=== PATIENT | female | born 1955 | race American Indian/Alaskan Native ===

== ENCOUNTER → 2018-12-13 | Emergency (ER) | payer SELFPAY ==
[~2018-12-13] MED LIST: LEXISCAN IV ONE; LOPRESSOR ONE; LOPRESSOR PO ONE; LOPRESSOR PO SCH; MORPHINE IV ONE; MORPHINE IV PRN; NON-FORMULARY (Rosuvastatin Calcium [Crestor] 40 MG) PO SCH; PERCOCET 5/325 PO PRN; PLAVIX ONE; PLAVIX PO ONE; PLAVIX PO SCH; PROzac ONE; PROzac PO SCH; SODIUM CHLORIDE FLUSH SYRINGE 10 ML IV PRN; SODIUM CHLORIDE FLUSH SYRINGE 10 ML IV SCH; TYLENOL PO PRN; ZOFRAN IV ONE; ZOFRAN IV PRN
--- NOTE | 2018-12-13 19:19 | Emergency Department Report ---
Blank Doc - Documentation Documentation: This is a 63-year-old female that presents witih CP and SOB. This initial assessment/diagnostic orders/clinical plan/treatment(s) is/are subject to change based on patient's health status, clinical progression and re- assessment by fellow clinical providers in the ED. Further treatment and workup at subsequent clinical providers discretion. Patient/guardians urged not to elope from the ED as their condition may be serious if not clinically assessed and managed. Initial orders include: 1- Patient sent to MAIN for further evaluation and treatment 2- labs 3- EKG 4- CXR
[2018-12-13 19:57] LABS: Basophils % (Auto) 0.2 % (0.0-1.8); Eosinophils # (Auto) 0.1 K/mm3 (0.0-0.4); Eosinophils % (Auto) 1.2 % (0.0-4.3); Hematocrit 41.4 % (30.3-42.9); Hemoglobin 14.2 gm/dl (10.1-14.3); Lymphocytes # (Auto) 2.9 K/mm3 (1.2-5.4); Mean Corpuscular HGB Conc 34 % (30-34); Mean Corpuscular Volume 90 fl (79-97); Monocytes # (Auto) 0.4 K/mm3 (0.0-0.8); Monocytes % (Auto) 4.9 % (0.0-7.3); Platelet Count 202 K/mm3 (140-440); Red Blood Count 4.58 M/mm3 (3.65-5.03); Red Cell Distribution Width 13.8 % (13.2-15.2)
[2018-12-13 20:30] LABS: BUN/Creatinine Ratio 13; Blood Urea Nitrogen 12 mg/dL (7-17); Calcium 9.8 mg/dL (8.4-10.2); Hemolysis Index 10
[2018-12-13 20:38] LABS: INR 0.99 (0.87-1.13)
[2018-12-13 20:39] LABS: Partial Thromboplastin Time 26.9 Sec. (24.2-36.6)
--- NOTE | 2018-12-13 22:30 | XRay Report ---
PROCEDURE: XR CHEST ROUTINE 2V HISTORY: Chest Pain FINDINGS: Frontal and lateral views the chest were acquired. The heart is normal in size. There is a pacing device with leads in the right atrium and ventricle. There is no evidence of congestive heart failure. There is no consolidative infiltrate. IMPRESSION: No active disease in the chest This document is electronically signed by Torres Hernandez MD., December 13 2018 10:28:09 PM ET
--- NOTE | 2018-12-14 01:14 | Cat Scan Report ---
PROCEDURE: CT CHEST W CON TECHNIQUE: Routine axial imaging was obtained of the thorax following the intravenous injection of i odinated contrast. Rotational, sagittal, and coronal MIP reconstructions reviewed. HISTORY: chest pain COMPARISONS: Chest x-ray 12/13/2018 FINDINGS: The heart size and thoracic aorta appear normal. There is no evidence of pericardial effusion. There is no evidence of pulmonary embolus or pulmonary congestion. The lungs are negative for infiltrates o r effusions. There is no suspicious nodularity. At the thoracic inlet the thyroid gland appears jabier l. There is a pacemaker overlying the left chest wall with the leads in the right atrium and right ve ntricle. The skeletal structures do not show acute changes. IMPRESSION: No evidence of pulmonary embolus, aortic dissection, or vascular congestion. No acute process in the chest.. This document is electronically signed by Guicho Alvarez MD., December 14 2018 01:12:37 AM ET
--- NOTE | 2018-12-14 01:25 | Cat Scan Report ---
PROCEDURE: CT ABDOMEN PELVIS W CON TECHNIQUE: Routine axial imaging was obtained of the abdomen and pelvis following the intravenous in jection of IV contrast. Sagittal and coronal reconstructions reviewed. HISTORY: chest pain LLQ pain COMPARISONS: None FINDINGS: The lung bases are clear. Pleural fluid is not seen. The liver is normal in size and reveal several subcentimeter low-attenuation foci in the right hepati c lobe. These may represent small cysts. They're too small to characterize. The gallbladder and bilia ry tree appear normal. The pancreas, spleen, and adrenal glands appear normal. The kidneys enhance no rmally. There is no evidence of hydronephrosis. The abdominal aorta and portal vein enhance normally. The bowel loops are normal in caliber and course. The appendix is not seen. There is no evidence of free fluid or adenopathy. In the pelvis the bladder appears normal. The uterus has been removed. The skeletal structures reveal arthritic changes in the lower lumbar spine. IMPRESSION: No acute process in the abdomen and pelvis. Possible very small cysts in the liver as described. Hysterectomy. Appendix not identified.. This document is electronically signed by Guicho Alvarez MD., December 14 2018 01:23:52 AM ET
--- NOTE | 2018-12-14 02:31 | Emergency Department Report ---
ED Chest Pain HPI - General Chief Complaint: Chest Pain Stated Complaint: CHEST PAIN/PACE MAKER PATIENT Time Seen by Provider: 12/13/18 19:17 Source: patient, family Mode of arrival: Wheelchair Limitations: No Limitations - History of Present Illness Initial Comments: Mrs. Lazo is a 63 yo female with hx of [place] x 2, depression, HTN, dyslipidemia who presents with chest pain for the past 4 days. Intermittent. Feels like someone is sitting on her chest. LLQ pain began 1-2 days ago, sharp. +dyspnea. MD Complaint: chest pain -: Gradual, days(s) (4) Onset: during rest Pain Location: left chest Pain Radiation: none Severity scale (0 -10): 10 Quality: heaviness Consistency: intermittent Improves With: nothing Worsens With: nothing re: dyspnea - Related Data Home Medications Medication Instructions Recorded Confirmed Last Taken FLUoxetine [PROzac] 20 mg PO QDAY 04/02/14 12/14/18 10/13/15 risperiDONE [RisperiDONE] 2 mg PO QHS 04/02/14 12/14/18 10/13/15 Clopidogrel [Plavix] 75 mg PO QDAY 10/14/15 12/14/18 10/13/15 Metoprolol [Lopressor TAB] 25 mg PO BID 10/14/15 12/14/18 10/13/15 Rosuvastatin Calcium [Crestor] 40 mg PO DAILY 10/14/15 12/14/18 10/13/15 Allergies Allergy/AdvReac Type Severity Reaction Status Date / Time aspirin Allergy Unknown Verified 04/02/14 19:58 codeine Allergy Unknown Verified 04/02/14 19:58 Sulfa (Sulfonamide Allergy Anaphylaxis Verified 10/14/15 19:37 Antibiotics) Heart Score - HEART Score History: Moderately suspicious EKG: Non-specific Age: 45-65 Risk factors: 1-2 risk factors Troponin: < normal limit HEART Score: 4 ED Review of Systems ROS: Stated complaint: CHEST PAIN/PACE MAKER PATIENT Other details as noted in HPI Comment: All other systems reviewed and negative Constitutional: denies: fever, malaise Respiratory: denies: cough Cardiovascular: chest pain ED Past Medical Hx - Past Medical History Previous Medical History?: Yes Hx Hypertension: Yes Hx CVA: Yes Hx Heart Attack/AMI: Yes Hx Congestive Heart Failure: Yes Hx Diabetes: No (DENIES DIABETES) Hx Deep Vein Thrombosis: Yes (3 years ago not on her Coumadin) Hx Psychiatric Treatment: Yes (Depression) Hx Asthma: No Hx COPD: No - Surgical History Hx Pacemaker: Yes - Social History Smoking Status: Current Every Day Smoker Substance Use Type: Marijuana - Medications Home Medications: Home Medications Medication Instructions Recorded Confirmed Last Taken Type FLUoxetine [PROzac] 20 mg PO QDAY 04/02/14 12/14/18 10/13/15 History risperiDONE [RisperiDONE] 2 mg PO QHS 04/02/14 12/14/18 10/13/15 History Clopidogrel [Plavix] 75 mg PO QDAY 10/14/15 12/14/18 10/13/15 History Metoprolol [Lopressor TAB] 25 mg PO BID 10/14/15 12/14/18 10/13/15 History Rosuvastatin Calcium [Crestor] 40 mg PO DAILY 10/14/15 12/14/18 10/13/15 History ED Physical Exam - General Limitations: No Limitations General appearance: alert, in no apparent distress - Head Head exam: Present: atraumatic, normocephalic - Eye Eye exam: Present: normal appearance - ENT ENT exam: Present: mucous membranes moist - Neck Neck exam: Present: normal inspection, full ROM - Respiratory Respiratory exam: Present: normal lung sounds bilaterally. Absent: respiratory distress, wheezes, rales, rhonchi - Cardiovascular Cardiovascular Exam: Present: regular rate, normal rhythm, normal heart sounds. Absent: systolic murmur, diastolic murmur, rubs, gallop - GI/Abdominal GI/Abdominal exam: Present: soft, tenderness, normal bowel sounds. Absent: distended, guarding, rebound - Extremities Exam Extremities exam: Present: normal inspection - Back Exam Back exam: Present: normal inspection - Neurological Exam Neurological exam: Present: alert, oriented X3 - Psychiatric Psychiatric exam: Present: normal affect, normal mood - Skin Skin exam: Present: warm, dry, intact, normal color. Absent: rash ED Course Vital Signs 12/13/18 12/13/18 12/13/18 19:32 21:33 23:14 Temperature 98.2 F 98.1 F Pulse Rate 84 72 69 Respiratory 18 16 17 Rate Blood Pressure 136/85 181/92 Blood Pressure [Left] O2 Sat by Pulse 100 98 99 Oximetry 12/13/18 12/13/18 12/13/18 23:16 23:30 23:46 Temperature Pulse Rate 67 78 73 Respiratory 15 15 12 Rate Blood Pressure 182/86 Blood Pressure [Left] O2 Sat by Pulse 98 99 99 Oximetry 12/14/18 12/14/18 00:24 01:17 Temperature Pulse Rate 66 Respiratory 18 Rate Blood Pressure 166/98 Blood Pressure 182/86 [Left] O2 Sat by Pulse 100 98 Oximetry ALEXANDR score - Alexandr Score Age > 65: (0) No Aspirin use within the Past 7 Days: (0) No 3 or more CAD Risk Factors: (0) No 2 or more Angina events in past 24 hrs: (0) No Known CAD with more than 50% Stenosis: (1) Yes Elevated Cardiac Markers: (0) No ST Deviation Greater than 0.5mm: (0) No ALEXANDR Score: 1 ED Medical Decision Making - Lab Data Result diagrams: 12/13/18 19:34 12/13/18 19:34 Laboratory Results - last 24 hr 12/13/18 12/13/18 12/13/18 19:34 19:34 19:34 WBC 7.8 RBC 4.58 Hgb 14.2 Hct 41.4 MCV 90 MCH 31 MCHC 34 RDW 13.8 Plt Count 202 Lymph % (Auto) 37.0 H [place] % (Auto) 4.9 Eos % (Auto) 1.2 Baso % (Auto) 0.2 Lymph # 2.9 [place] # 0.4 Eos # 0.1 Baso # 0.0 Seg Neutrophils % 56.7 Seg Neutrophils # 4.4 PT 13.7 INR 0.99 APTT 26.9 Sodium 143 Potassium 4.2 Chloride 105.8 Carbon Dioxide 26 Anion Gap 15 BUN 12 Creatinine 0.9 Estimated GFR > 60 BUN/Creatinine Ratio 13 Glucose 100 Calcium 9.8 Troponin T < 0.010 12/13/18 23:25 WBC RBC Hgb Hct MCV MCH MCHC RDW Plt Count Lymph % (Auto) [place] % (Auto) Eos % (Auto) Baso % (Auto) Lymph # [place] # Eos # Baso # Seg Neutrophils % Seg Neutrophils # PT INR APTT Sodium Potassium Chloride Carbon Dioxide Anion Gap BUN Creatinine Estimated GFR BUN/Creatinine Ratio Glucose Calcium Troponin T < 0.010 - EKG Data 12/14/18 02:30 EKG Obtained 1920 NSR 75 bpm nl axis nl intervals No signs of ischemia - Radiology Data Radiology results: report reviewed CT chest/abd/pelvis no acute process - Medical Decision Making chest pain will need evaluation for ACS abdominal pain nonspecific no acute process on CT hypertensive urgency addressed with betablocker admitted to hospitalist service Critical care attestation.: If time is entered above; I have spent that time in minutes in the direct care of this critically ill patient, excluding procedure time. ED Disposition Clinical Impression: Acute coronary syndromes, Hypertensive urgency, Abdominal pain Disposition: OP ADMIT IP TO THIS HOSP Is pt being admited?: Yes Does the pt Need Aspirin: No Condition: Stable Referrals: ADELA OWENS MD [Primary Care Provider] - 3-5 Days
[2018-12-14 03:08] LABS: INR 0.94 (0.87-1.13)
--- NOTE | 2018-12-14 03:40 | History and Physical Report ---
History of Present Illness Date of examination: 12/14/18 Chief complaint: Chest pain History of present illness: Patient is a 63-year-old -Kos[place] female with history of CAD who present ed to the ED on account of 4 days history of left-sided chest pain. She described it as punching in nature, rated 10 over 10 and radiates upwards. The pain waxes and wanes. No known aggravating or relieving factors. She has associated shortness of breath, diaphoresis, headaches, lightheadedness and nausea without vomiting. She denies palpitations, cough, sore throat, runny nose or congestion, leg swelling, orthopnea or PND. She also complained of left lower quadrant abdominal pain and urinary frequency. She denies dysuria, constipation or diarrhea. No reported history of recent stress test. Left cardiac cath in 2016 was negative. Past History Past Medical History: CAD, DVT, heart failure, hypertension, stroke, other (depression) Past Surgical History: , hysterectomy, Other (pacemaker placement) Social history: smoking (patient has 20 years history of cigarette smoking. She currently smokes 1 pack per week. She denies alcohol or illicit drug use) Family history: other (reviewed and noncontributory) Medications and Allergies Allergies Allergy/AdvReac Type Severity Reaction Status Date / Time aspirin Allergy Unknown Verified 04/02/14 19:58 codeine Allergy Unknown Verified 04/02/14 19:58 Sulfa (Sulfonamide Allergy Anaphylaxis Verified 10/14/15 19:37 Antibiotics) Home Medications Medication Instructions Recorded Confirmed Last Taken Type FLUoxetine [PROzac] 20 mg PO QDAY 04/02/14 12/14/18 10/13/15 History risperiDONE [RisperiDONE] 2 mg PO QHS 04/02/14 12/14/18 10/13/15 History Clopidogrel [Plavix] 75 mg PO QDAY 10/14/15 12/14/18 10/13/15 History Metoprolol [Lopressor TAB] 25 mg PO BID 10/14/15 12/14/18 10/13/15 History Rosuvastatin Calcium [Crestor] 40 mg PO DAILY 10/14/15 12/14/18 10/13/15 History Active Meds: Active Medications Acetaminophen (Tylenol) 650 mg PO Q4H PRN PRN Reason: Pain MILD(1-3)/Fever >100.5/BURKS Clopidogrel Bisulfate (Plavix) 75 mg PO QDAY [facility] Fluoxetine HCl (Prozac) 20 mg PO QDAY [facility] Metoprolol Tartrate (Lopressor) 25 mg PO BID [facility] Miscellaneous Medication (Rosuvastatin Calcium [Crestor]) 40 mg PO DAILY [facility] Morphine Sulfate (Morphine) 2 mg IV Q4H PRN PRN Reason: Pain, Moderate (4-6) Ondansetron HCl (Zofran) 4 mg IV Q8H PRN PRN Reason: Nausea And Vomiting Oxycodone/Acetaminophen (Percocet 5/325) 1 tab PO Q6H PRN PRN Reason: Pain, Moderate (4-6) Sodium Chloride (Sodium Chloride Flush Syringe 10 Ml) 10 ml IV BID [facility]ERSON Sodium Chloride (Sodium Chloride Flush Syringe 10 Ml) 10 ml IV PRN PRN PRN Reason: LINE FLUSH Review of Systems All systems: negative (except as documented in the HPI, all other systems were reviewed and negative) Exam - Constitutional Vitals: Temp Pulse Resp BP Pulse Ox 98.1 F 66 18 166/98 98 12/13/18 21:33 12/14/18 00:24 12/14/18 00:24 12/14/18 01:17 12/14/18 01:17 General appearance: Present: no acute distress, well-nourished - EENT Eyes: Present: PERRL, EOM intact ENT: hearing intact, clear oral mucosa - Neck Neck: Present: supple, normal ROM - Respiratory Respiratory effort: normal Respiratory: bilateral: CTA - Cardiovascular Rhythm: regular Heart Sounds: Present: S1 & S2. Absent: rub, click - Extremities Extremities: No edema Peripheral Pulses: within normal limits - Abdominal General gastrointestinal: Present: soft, non-tender, non-distended, normal bowel sounds Female genitourinary: Present: deferred - Integumentary Integumentary: Present: clear, warm, dry - Musculoskeletal Musculoskeletal: gait normal, strength equal bilaterally - Psychiatric Psychiatric: appropriate mood/affect, intact judgment & insight - Neurologic Neurologic: CNII-XII intact, moves all extremities Results - Labs CBC & Chem 7: 12/13/18 19:34 12/13/18 19:34 Labs: Laboratory Last Values WBC 7.8 K/mm3 (4.5-11.0) 12/13/18 19:34 RBC 4.58 M/mm3 (3.65-5.03) 12/13/18 19:34 Hgb 14.2 gm/dl (10.1-14.3) 12/13/18 19:34 Hct 41.4 % (30.3-42.9) 12/13/18 19:34 MCV 90 fl (79-97) 12/13/18 19:34 MCH 31 pg (28-32) 12/13/18 19:34 MCHC 34 % (30-34) 12/13/18 19:34 RDW 13.8 % (13.2-15.2) 12/13/18 19:34 Plt Count 202 K/mm3 (140-440) 12/13/18 19:34 Lymph % (Auto) 37.0 % (13.4-35.0) H 12/13/18 19:34 [place] % (Auto) 4.9 % (0.0-7.3) 12/13/18 19:34 Eos % (Auto) 1.2 % (0.0-4.3) 12/13/18 19:34 Baso % (Auto) 0.2 % (0.0-1.8) 12/13/18 19:34 Lymph # 2.9 K/mm3 (1.2-5.4) 12/13/18 19:34 [place] # 0.4 K/mm3 (0.0-0.8) 12/13/18 19:34 Eos # 0.1 K/mm3 (0.0-0.4) 12/13/18 19:34 Baso # 0.0 K/mm3 (0.0-0.1) 12/13/18 19:34 Seg Neutrophils % 56.7 % (40.0-70.0) 12/13/18 19:34 Seg Neutrophils # 4.4 K/mm3 (1.8-7.7) 12/13/18 19:34 PT 13.1 Sec. (12.2-14.9) 12/14/18 02:39 INR 0.94 (0.87-1.13) 12/14/18 02:39 APTT 26.9 Sec. (24.2-36.6) 12/13/18 19:34 Sodium 143 mmol/L (137-145) 12/13/18 19:34 Potassium 4.2 mmol/L (3.6-5.0) 12/13/18 19:34 Chloride 105.8 mmol/L (98-107) 12/13/18 19:34 Carbon Dioxide 26 mmol/L (22-30) 12/13/18 19:34 Anion Gap 15 mmol/L 12/13/18 19:34 BUN 12 mg/dL (7-17) 12/13/18 19:34 Creatinine 0.9 mg/dL (0.7-1.2) 12/13/18 19:34 Estimated GFR > 60 ml/min 12/13/18 19:34 BUN/Creatinine Ratio 13 % 12/13/18 19:34 Glucose 100 mg/dL (65-100) 12/13/18 19:34 Calcium 9.8 mg/dL (8.4-10.2) 12/13/18 19:34 Troponin T < 0.010 ng/mL (0.00-0.029) 12/13/18 23:25 Assessment and Plan Assessment and plan: Chest pain rule out ACS -Chest pain pathway -Stress test and echocardiogram for further evaluation Hypertension, uncontrolled -On antihypertensive, adjust as needed Left lower quadrant abdominal pain -CT abdomen/pelvis negative -We will do lipase level and urinalysis History of CAD -Status post pacemaker placement -Continue home medications DVT prophylaxis with SCD Disposition: For discharge if stress test is negative Time spent: 35 minutes
[2018-12-14 06:40] VITALS: BP 153/83
[2018-12-14 06:49] LABS: Bilirubin,Urine NEG (Negative); Blood,Urine NEG (Negative); Color,Urine Straw (Yellow); Protein,Urine <15 mg/dL mg/dL (Negative); RBC,Urine < 1.0 /HPF (0.0-6.0); Urobilinogen,Urine < 2.0 mg/dL (<2.0)
[2018-12-14 06:57] LABS: WBC,Urine < 1.0 /HPF (0.0-6.0)
--- NOTE | 2018-12-14 12:45 | Discharge Summary ---
Providers - Providers Date of Admission: 12/14/18 03:26 Attending physician: RAYMOND WARD MD [facility] Reason for admission: CHEST PAIN Condition: Stable Hospital course: Patient is a 63-year-old -Trist[place] female with history of CAD who presented to the ED on account of 4 days history of left-sided chest pain. She described it as punching in nature, rated 10 over 10 and radiates upwards. The pain waxes and wanes. No known aggravating or relieving factors. She has associated shortness of breath, diaphoresis, headaches, lightheadedness and nausea without vomiting. She denies palpitations, cough, sore throat, runny nose or congestion, leg swelling, orthopnea or PND. She also complained of left lower quadrant abdominal pain and urinary frequency. She denies dysuria, constipation or diarrhea. No reported history of recent stress test. Left cardiac cath in 2016 was negative. ON ADMISSION CHEST PAIN WAS RESOLVED PATIENT REPORTED LLQ ABDOMINAL PAIN WHICH ALSO WAS RESOLED I RECOMMENDED OUTPATIENT CARDIOLOGY EVAL SINCE SHE HAS A PACEMAKER AND HAS NOT FOLLOWED UP WITH CARDIOLOGY ALSO TO FOLLOW WITH GI Lipase was negative Atypical Chest pain secondary to costochondritis Hypertension, uncontrolled Left lower quadrant abdominal pain History of CAD Disposition: DC-01 TO HOME OR SELFCARE Time spent for discharge: 35 MINS Core Measure Documentation - Palliative Care Palliative Care/ Comfort Measures: Not Applicable - Core Measures Any of the following diagnoses?: none Exam - Physical Exam Narrative exam: VITAL SIGNS: Reviewed. GENERAL: The patient appeared well nourished and normally developed, Vital signs as documented. HEAD: No signs of head trauma. EYES: Pupils are equal. Extraocular motions intact. EARS: Hearing grossly intact. MOUTH: Oropharynx is normal. NECK: No adenopathy, no JVD. CHEST: Chest with clear breath sounds bilaterally. No wheezes, rales, or rhonchi. CARDIAC: Regular rate and rhythm. S1 and S2, without murmurs, gallops, or rubs. VASCULAR: No Edema. Peripheral pulses normal and equal in all extremities. ABDOMEN: Soft, non tender and non distended. No rebound or guarding, and no masses palpated. Bowel Sounds normal. MUSCULOSKELETAL: Good range of motion of all major joints. Extremities without clubbing, cyanosis or edema. NEUROLOGIC EXAM: Alert and oriented x 3 No focal sensory or strength deficits. Speech normal. Follows commands. PSYCHIATRIC: Mood normal. SKIN: No rash or lesions. - Constitutional Vitals: Temp Pulse Resp BP Pulse Ox 98.1 F 61 14 153/83 98 12/13/18 21:33 12/14/18 07:48 12/14/18 07:48 12/14/18 07:48 12/14/18 07:47 Plan Activity: advance as tolerated, fall precautions Diet: low fat Special Instructions: smoking cessation Follow up with: MARIELLE JEFFREY MD [Staff Physician] - 7 Days [facility] MD [Primary Care Provider] - 3-5 Days PARDEEP MORAN MD [Staff Physician] - 7 Days Prescriptions: Famotidine 40 mg PO DAILY #30 tablet traMADol [Ultram] 50 mg PO Q6HR PRN #14 tablet PRN Reason: Pain
--- NOTE | 2018-12-14 21:24 | Treadmill Report ---
NUCLEAR CARDIAC IMAGING INDICATION FOR PROCEDURE: Chest pain. Informed consent was obtained. Vasodilator stress was achieved with the intravenous administration of 0.4 mg of Lexiscan per protocol. Rest and stress nuclear cardiac imaging were performed per protocol following the intravenous administration of 10 and 28 mCi of technetium-99m Myoview. Images were acquired in a 180-degree arc from 45 degrees AQUINO to 45 degrees LPO. After data acquisition and reconstruction, the images were processed and reoriented into the vertical long, horizontal long, and horizontal short axis slices. A polar color map of the horizontal short axis slices was generated and reviewed. The rotating planar images reviewed in cinematic format on the computer console. Gated SPECT imaging demonstrates a post-stress left ventricular ejection fraction of 60% with normal wall motion. Myocardial perfusion imaging demonstrates no significant cavity change between stress and rest. No significant stress induced perfusion defects are seen. Nuclear cardiac imaging demonstrates grossly normal post-stress left ventricular systolic function with no significant evidence for myocardial ischemia or necrosis. [facility]# [id number] TORY/MILES
== END | disposition admitted as inpatient to this hospital (09) ==
LOC: ED 19:03 → UNDOADMOB 12-14 03:26 → 4A 12-14 03:26
DX: I24.9 Acute ischemic heart disease, unspecified (principal); I16.0 Hypertensive urgency; I11.0 Hypertensive heart disease with heart failure; I50.9 Heart failure, unspecified; I25.2 Old myocardial infarction; F17.200 Nicotine dependence, unspecified, uncomplicated; F12.10 Cannabis abuse, uncomplicated; Z86.73 Personal history of transient ischemic attack (TIA), and cerebral infarction without residual deficits; Z86.718 Personal history of other venous thrombosis and embolism; Z86.711 Personal history of pulmonary embolism; Z95.0 Presence of cardiac pacemaker; Z88.6 Allergy status to analgesic agent; Z88.5 Allergy status to narcotic agent; Z88.2 Allergy status to sulfonamides
CPT/HCPCS: 36415; 71046; 80048; 84484; 85025; 85610; 85730; 93005; 93010; 96374; 96375; 96376; 99285; J2270; J2405; 71260; 74177; 78452; 81001; 83690; 87086; 93017; 93306; A9502; J2785; Q9967

== ENCOUNTER 2019-05-01 11:29 | Emergency (ER) | payer SELFPAY ==
--- NOTE | 2019-05-01 11:35 | Emergency Department Report ---
ED Chest Pain HPI - General Chief Complaint: Chest Pain Stated Complaint: SOB/CHEST PAIN Time Seen by Provider: 05/01/19 11:34 Source: patient Mode of arrival: Ambulatory Limitations: No Limitations - History of Present Illness Initial Comments: 63 y/o female comes in for chest pain and has - Related Data Home Medications Medication Instructions Recorded Confirmed Last Taken FLUoxetine [PROzac] 20 mg PO QDAY 04/02/14 12/14/18 10/13/15 risperiDONE [RisperiDONE] 2 mg PO QHS 04/02/14 12/14/18 10/13/15 Clopidogrel [Plavix] 75 mg PO QDAY 10/14/15 12/14/18 10/13/15 Metoprolol [Lopressor TAB] 25 mg PO BID 10/14/15 12/14/18 10/13/15 Rosuvastatin Calcium [Crestor] 40 mg PO DAILY 10/14/15 12/14/18 10/13/15 Previous Rx's Medication Instructions Recorded Last Taken Type Famotidine 40 mg PO DAILY #30 tablet 12/14/18 Unknown Rx traMADol [Ultram] 50 mg PO Q6HR PRN #14 tablet 12/14/18 Unknown Rx Allergies Allergy/AdvReac Type Severity Reaction Status Date / Time aspirin Allergy Unknown Verified 04/02/14 19:58 codeine Allergy Unknown Verified 04/02/14 19:58 Sulfa (Sulfonamide Allergy Anaphylaxis Verified 10/14/15 19:37 Antibiotics) ED Review of Systems ROS: Stated complaint: SOB/CHEST PAIN Other details as noted in HPI ED Past Medical Hx - Past Medical History Hx Hypertension: Yes Hx CVA: Yes Hx Heart Attack/AMI: Yes Hx Congestive Heart Failure: Yes Hx Diabetes: No (DENIES DIABETES) Hx Deep Vein Thrombosis: Yes (3 years ago not on her Coumadin) Hx Psychiatric Treatment: Yes (Depression) Hx Asthma: No Hx COPD: No - Surgical History Hx Pacemaker: Yes - Social History Smoking Status: Current Every Day Smoker Substance Use Type: Marijuana - Medications Home Medications: Home Medications Medication Instructions Recorded Confirmed Last Taken Type FLUoxetine [PROzac] 20 mg PO QDAY 04/02/14 12/14/18 10/13/15 History risperiDONE [RisperiDONE] 2 mg PO QHS 04/02/14 12/14/18 10/13/15 History Clopidogrel [Plavix] 75 mg PO QDAY 01/12/14/18 10/13/15 History Metoprolol [Lopressor TAB] 25 mg PO BID 10/14/15 12/14/18 10/13/15 History Rosuvastatin Calcium [Crestor] 40 mg PO DAILY 10/14/15 12/14/18 10/13/15 History Famotidine 40 mg PO DAILY #30 tablet 12/14/18 Unknown Rx traMADol [Ultram] 50 mg PO Q6HR PRN #14 tablet 12/14/18 Unknown Rx ED Physical Exam - General Limitations: No Limitations ALEXANDR score - Alexandr Score Age > 65: (0) No Aspirin use within the Past 7 Days: (0) No 3 or more CAD Risk Factors: (0) No 2 or more Angina events in past 24 hrs: (0) No Known CAD with more than 50% Stenosis: (1) Yes Elevated Cardiac Markers: (0) No ST Deviation Greater than 0.5mm: (0) No ALEXANDR Score: 1 Critical care attestation.: If time is entered above; I have spent that time in minutes in the direct care of this critically ill patient, excluding procedure time. ED Disposition Condition: Stable
--- NOTE | 2019-05-01 11:40 | Event Note ---
ED Screening Note Date of service: 05/01/19 Time: 11:38 ED Screening Note: 63 y/o female comes in for left upper left chest pain thimes 3 days. History of CAD and has a pacemaker. Last admission 12/2018. This initial assessment/diagnostic orders/clinical plan/treatment(s) is/are subject to change based on patients health status, clinical progression and re- assessment by fellow clinical providers in the ED. Further treatment and workup at subsequent clinical providers discretion. Patient/guardian urged not to elope from the ED as their condition may be serious if not clinically assessed and managed. Initial orders include:
[2019-05-01] MEDS ORDERED: ATROVENT IH ONE (11:54)
[2019-05-01] MEDS ORDERED: PROVENTIL IH ONE ×2 (11:54→15:37)
--- NOTE | 2019-05-01 11:56 | Emergency Department Report ---
ED Chest Pain HPI - General Chief Complaint: Chest Pain Stated Complaint: SOB/CHEST PAIN Time Seen by Provider: 05/01/19 11:34 Source: patient, old records reviewed (admitted here 12/2018 for chest pain, neg stress, neg cath 10/2015) Mode of arrival: Ambulatory Limitations: No Limitations - History of Present Illness Initial Comments: 63-year-old female past medical history athma, smoking, CHF, CVA, DVT, CAD, polio, hypertension, pacemaker placement, and depression presents to the hospital with complaints of chest pain, cough, intermittent palpitations, and shortness of breath 3 days. Patient complains of left upper chest wall pain feels like something pressing on her chest. Pain is constant and worse with palpation. She also feels like for the past 3 days her pacemaker is shocking her. She will get several shocks 20 minutes apart. She has right arm numbness associated with shocking episodes. Patient complains of a bad cough that is pro duction of white sputum. Diaphoresis and nausea reported without documented fever or vomiting. Patient just returned this morning from a 1 day trip via car to and from [place]. Prior to that she had traveled to [place] and [place]. Patient is not currently taking any medication including anticoagulants and Plavix (aspirin allergy). Her pacemaker was originally placed in 1999 and then replaced in 2008. She has not followed up with a hotel attendant. as per medical record pt had a pacemaker placed in 2001 and 2012 on record 10/14/15 there is a form from [employer] indicated patient has a dual-chamber pacemaker placed on 05/05/2013 and not a defibrillator - Related Data Home Medications Medication Instructions Recorded Confirmed Last Taken FLUoxetine [PROzac] 20 mg PO QDAY 04/02/14 12/14/18 10/13/15 risperiDONE [RisperiDONE] 2 mg PO QHS 04/02/14 12/14/18 10/13/15 Clopidogrel [Plavix] 75 mg PO QDAY 10/14/15 12/14/18 10/13/15 Metoprolol [Lopressor TAB] 25 mg PO BID 10/14/15 12/14/18 10/13/15 Rosuvastatin Calcium [Crestor] 40 mg PO DAILY 10/14/15 12/14/18 10/13/15 Previous Rx's Medication Instructions Recorded Last Taken Type Famotidine 40 mg PO DAILY #30 tablet 12/14/18 Unknown Rx traMADol [Ultram] 50 mg PO Q6HR PRN #14 tablet 12/14/18 Unknown Rx ALBUTEROL Inhaler (OR & NICU) 2 puff IH QID PRN #1 inhalation 05/01/19 Unknown Rx [ProAir HFA Inhaler] Azithromycin [Zithromax TAB] 250 mg PO QDAY #4 tablet 05/01/19 Unknown Rx Benzonatate [Tessalon Perles] 100 mg PO Q8HR #20 capsule 05/01/19 Unknown Rx Cyclobenzaprine [Flexeril] 10 mg PO TID PRN #20 tablet 05/01/19 Unknown Rx HYDROcodone/APAP 5-325 [[place] 1 each PO Q6HR PRN #14 tablet 05/01/19 Unknown Rx 5/325] Prednisone [predniSONE 10 mg 10 mg PO .TAPER #1 tab.ds.pk 05/01/19 Unknown Rx (6-Day Pack, 21 Tabs)] Allergies Allergy/AdvReac Type Severity Reaction Status Date / Time aspirin Allergy Unknown Verified 04/02/14 19:58 codeine Allergy Unknown Verified 04/02/14 19:58 Sulfa (Sulfonamide Allergy Anaphylaxis Verified 10/14/15 19:37 Antibiotics) Heart Score - HEART Score History: Slightly suspicious EKG: Normal Age: 45-65 Risk factors: 1-2 risk factors Troponin: < normal limit HEART Score: 2 ED Review of Systems ROS: Stated complaint: SOB/CHEST PAIN Other details as noted in HPI Comment: All other systems reviewed and negative ED Past Medical Hx - Past Medical History Hx Hypertension: Yes Hx CVA: Yes Hx Heart Attack/AMI: Yes Hx Congestive Heart Failure: Yes Hx Diabetes: No (DENIES DIABETES) Hx Deep Vein Thrombosis: Yes (3 years ago not on her Coumadin) Hx Psychiatric Treatment: Yes (Depression) Hx Asthma: Yes Hx COPD: No Additional medical history: 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 - Surgical History Hx Pacemaker: Yes - Social History Smoking Status: Current Every Day Smoker Substance Use Type: None - Medications Home Medications: Home Medications Medication Instructions Recorded Confirmed Last Taken Type FLUoxetine [PROzac] 20 mg PO QDAY 04/02/14 12/14/18 10/13/15 History risperiDONE [RisperiDONE] 2 mg PO QHS 04/02/14 12/14/18 10/13/15 History Clopidogrel [Plavix] 75 mg PO QDAY 10/14/15 12/14/18 10/13/15 History Metoprolol [Lopressor TAB] 25 mg PO BID 10/14/15 12/14/18 10/13/15 History Rosuvastatin Calcium [Crestor] 40 mg PO DAILY 10/14/15 12/14/18 10/13/15 History Famotidine 40 mg PO DAILY #30 tablet 12/14/18 Unknown Rx traMADol [Ultram] 50 mg PO Q6HR PRN #14 tablet 12/14/18 Unknown Rx ALBUTEROL Inhaler (OR & NICU) 2 puff IH QID PRN #1 inhalation 05/01/19 Unknown Rx [ProAir HFA Inhaler] Azithromycin [Zithromax TAB] 250 mg PO QDAY #4 tablet 05/01/19 Unknown Rx Benzonatate [Tessalon Perles] 100 mg PO Q8HR #20 capsule 05/01/19 Unknown Rx Cyclobenzaprine [Flexeril] 10 mg PO TID PRN #20 tablet 05/01/19 Unknown Rx HYDROcodone/APAP 5-325 [[place] 1 each PO Q6HR PRN #14 tablet 05/01/19 Unknown Rx 5/325] Prednisone [predniSONE 10 mg 10 mg PO .TAPER #1 tab.ds.pk 05/01/19 Unknown Rx (6-Day Pack, 21 Tabs)] ED Physical Exam - General Limitations: No Limitations - Other Other exam information: General: No acute distress Head: Atraumatic normocephalic Eyes: Normal appearance, pupils equal reactive to light, extraocular movements intact ENT: Normal oropharynx Neck: Normal appearance, no C-spine tenderness, no meningismus Chest: Intermittent coughing, mild wheezing and crackles right greater than left Cardiovascular: Regular rate and rhythm, left upper chest wall tenderness Abdomen: Soft, nondistended, nontender, no rebound or guarding, normal bowel sounds Back: Normal inspection, nontender Extremity: Right leg greater than size to the left chronic due to polio no calf tenderness or pitting edema., no deformity, full range of motion Neuro: Alert and oriented 3, speech clear, no gross motor or sensory deficit Skin: No rash, warmth, or erythema ED Course Vital Signs 05/01/19 05/01/19 05/01/19 11:35 13:00 13:30 Temperature 98.3 F Pulse Rate 98 H 86 93 H Respiratory 18 11 L 21 Rate Blood Pressure 168/94 144/82 130/77 O2 Sat by Pulse 99 96 96 Oximetry 05/01/19 05/01/19 05/01/19 14:05 14:30 15:01 Temperature Pulse Rate 97 H 88 82 Respiratory 19 13 Rate Blood Pressure 130/77 148/80 133/70 O2 Sat by Pulse 92 96 Oximetry 05/01/19 05/01/19 15:30 16:01 Temperature Pulse Rate 87 94 H Respiratory 16 21 Rate Blood Pressure 135/84 135/84 O2 Sat by Pulse 94 98 Oximetry - Consultations Consultation #1: 05/01/19 15:[address] Leung manager marketing communications hotel attendant. Since patient does not have a defibrillator and is in sinus rhythm with no acute device intervention needed at this time. ALEXANDR score - Alexandr Score Age > 65: (0) No 3 or more CAD Risk Factors: (0) No 2 or more Angina events in past 24 hrs: (0) No Known CAD with more than 50% Stenosis: (1) Yes Elevated Cardiac Markers: (0) No ST Deviation Greater than 0.5mm: (0) No ED Medical Decision Making - Lab Data Result diagrams: 05/01/19 11:52 05/01/19 11:52 Lab Results 05/01/19 05/01/19 05/01/19 Range/Units 11:49 11:49 11:52 WBC 10.1 (4.5-11.0) K/mm3 RBC 4.54 (3.65-5.03) M/mm3 Hgb 14.0 (10.1-14.3) gm/dl Hct 40.7 (30.3-42.9) % MCV 90 (79-97) fl MCH 31 (28-32) pg MCHC 35 H (30-34) % RDW 13.6 (13.2-15.2) % Plt Count 226 (140-440) K/mm3 Lymph % (Auto) 39.7 H (13.4-35.0) % [place] % (Auto) 6.1 (0.0-7.3) % Eos % (Auto) 1.6 (0.0-4.3) % Baso % (Auto) 0.3 (0.0-1.8) % Lymph # 4.0 (1.2-5.4) K/mm3 [place] # 0.6 (0.0-0.8) K/mm3 Eos # 0.2 (0.0-0.4) K/mm3 Baso # 0.0 (0.0-0.1) K/mm3 Seg Neutrophils % 52.3 (40.0-70.0) % Seg Neutrophils # 5.3 (1.8-7.7) K/mm3 PT 13.8 (12.2-14.9) Sec. INR 1.09 (0.87-1.13) APTT 28.7 (24.2-36.6) Sec. D-Dimer 301.78 H (0-234) ng/mlDDU Sodium (137-145) mmol/L Potassium (3.6-5.0) mmol/L Chloride (98-107) mmol/L Carbon Dioxide (22-30) mmol/L Anion Gap mmol/L BUN (7-17) mg/dL Creatinine (0.7-1.2) mg/dL Estimated GFR ml/min BUN/Creatinine Ratio % Glucose (65-100) mg/dL Calcium (8.4-10.2) mg/dL Magnesium 2.20 (1.7-2.3) mg/dL Total Bilirubin (0.1-1.2) mg/dL AST (5-40) units/L ALT (7-56) units/L Alkaline Phosphatase (35-129) units/L Troponin T (0.00-0.029) ng/mL Total Protein (6.3-8.2) g/dL Albumin (3.9-5) g/dL Albumin/Globulin Ratio % Lipase (13-60) units/L // Range/Units 11:52 WBC (4.5-11.0) K/mm3 RBC (3.65-5.03) M/mm3 Hgb (10.1-14.3) gm/dl Hct (30.3-42.9) % MCV (79-97) fl MCH (28-32) pg MCHC (30-34) % RDW (13.2-15.2) % Plt Count (140-440) K/mm3 Lymph % (Auto) (13.4-35.0) % [place] % (Auto) (0.0-7.3) % Eos % (Auto) (0.0-4.3) % Baso % (Auto) (0.0-1.8) % Lymph # (1.2-5.4) K/mm3 [place] # (0.0-0.8) K/mm3 Eos # (0.0-0.4) K/mm3 Baso # (0.0-0.1) K/mm3 Seg Neutrophils % (40.0-70.0) % Seg Neutrophils # (1.8-7.7) K/mm3 PT (12.2-14.9) Sec. INR (0.87-1.13) APTT (24.2-36.6) Sec. D-Dimer (0-234) ng/mlDDU Sodium 141 (137-145) mmol/L Potassium 4.2 (3.6-5.0) mmol/L Chloride 104.9 (98-107) mmol/L Carbon Dioxide 22 (22-30) mmol/L Anion Gap 18 mmol/L BUN 13 (7-17) mg/dL Creatinine 0.8 (0.7-1.2) mg/dL Estimated GFR > 60 ml/min BUN/Creatinine Ratio 16 % Glucose 103 H (65-100) mg/dL Calcium 10.0 (8.4-10.2) mg/dL Magnesium (1.7-2.3) mg/dL Total Bilirubin 0.30 (0.1-1.2) mg/dL AST 17 (5-40) units/L ALT 14 (7-56) units/L Alkaline Phosphatase 99 (35-129) units/L Troponin T < 0.010 (0.00-0.029) ng/mL Total Protein 7.5 (6.3-8.2) g/dL Albumin 4.3 (3.9-5) g/dL Albumin/Globulin Ratio 1.3 % Lipase 49 (13-60) units/L - EKG Data -: EKG Interpreted by Me EKG shows normal: sinus rhythm, axis (qrs -12), QRS complexes (qrsd 75), ST-T waves (no stemi) Rate: normal (84) - EKG Data When compared to previous EKG there are: no significant change - Radiology Data Radiology results: report reviewed CTA CHEST WITH IV CONTRAST INDICATION / CLINICAL INFORMATION: MAIN: punching pain in top left center of chest, 3days, cp, sob, hx of dvt. TECHNIQUE: Axial CT images were obtained through the chest after injection of IV contrast. 3 plane MIP and/or 3D reconstructions were produced. All CT scans at this location are performed using CT dose reduction for ALARA by means of automated exposure control. COMPARISON: 12/14/2018 CT of the chest FINDINGS: PULMONARY ARTERIES: No pulmonary emboli. THORACIC AORTA: No significant abnormality. HEART: No significant abnormality. CORONARY ARTERIES: No significant calcification. PLEURA: No pleural effusion. No pneumothorax. LYMPH NODES: No significant adenopathy. LUNGS: No acute air space or interstitial disease. ADDITIONAL FINDINGS: None. UPPER ABDOMEN: No acute findings. SKELETAL STRUCTURES: No significant osseous abnormality. IMPRESSION: 1. No CT evidence for pulmonary embolism. 2. No acute findings. CHEST 1 VIEW INDICATION: Chest Pain COMPARISON: 10/14/2015 FINDINGS: Support devices: Bipolar pacemaker on the left Heart: Stable. Lungs/Pleura: No acute pulmonary or pleural findings. IMPRESSION: 1. No significant change. - Medical Decision Making She has reproducible left-sided chest wall pain likely secondary to coughing. Patient has had associated wheezing. Shortness of breath improved with nebulized treatments and Solu-Medrol. Her 80s the patient was having intermittent spasms to her legs he received Ativan. She also received Toradol and [place] for pain. Tessalon Perles as provided for cough. Patient has a dual- chamber pacemaker and not a defibrillator. There are no pacing spikes on EKG and patient is in sinus rhythm here in the ED. Case discussed with hotel attendant manager marketing communications and is unlikely the patient is receiving "shocks" given that she does not have defibrillator. Outpatient follow-up with cardiology and PMD advised. Patient will be treated for acute bronchitis and other medications for symptomatic relief. Critical Care Time: No Critical care attestation.: If time is entered above; I have spent that time in minutes in the direct care of this critically ill patient, excluding procedure time. ED Disposition Clinical Impression: Pacemaker, Acute bronchitis, Chest wall pain Disposition: DC-01 TO HOME OR SELFCARE Is pt being admited?: No Does the pt Need Aspirin: No Condition: Stable Instructions: Acute Bronchitis (ED), Costochondritis (ED) Additional Instructions: Take the medications as prescribed. Follow-up with your doctor or with a doctor/clinic provided. Return is symptoms worsen as indicated by the discharge instructions. Prescriptions: Cyclobenzaprine [Flexeril] 10 mg PO TID PRN #20 tablet PRN Reason: Muscle Spasm HYDROcodone/APAP 5-325 [[place] 5/325] 1 each PO Q6HR PRN #14 tablet PRN Reason: Pain Prednisone [predniSONE 10 mg (6-Day Pack, 21 Tabs)] 10 mg PO .TAPER #1 tab.ds.pk ALBUTEROL Inhaler (OR & NICU) [ProAir HFA Inhaler] 2 puff IH QID PRN #1 inhalation PRN Reason: Shortness Of Breath Benzonatate [Tessalon Perles] 100 mg PO Q8HR #20 capsule Azithromycin [Zithromax TAB] 250 mg PO QDAY #4 tablet Referrals: ADELA OWENS MD [Primary Care Provider] - 3-5 Days [facility] [Provider Group] - 3-5 Days Time of Disposition: 17:10
[2019-05-01] MEDS ORDERED: TORADOL IV ONE (11:57)
[2019-05-01] MEDS ORDERED: TESSALON PERLES PO ONE (12:03)
[2019-05-01 12:21] LABS: Basophils % (Auto) 0.3 % (0.0-1.8); Eosinophils # (Auto) 0.2 K/mm3 (0.0-0.4); Eosinophils % (Auto) 1.6 % (0.0-4.3); Hematocrit 40.7 % (30.3-42.9); Lymphocytes % (Auto) 39.7 % (13.4-35.0); Mean Corpuscular HGB Conc 35 % (30-34); Mean Corpuscular Volume 90 fl (79-97); Monocytes # (Auto) 0.6 K/mm3 (0.0-0.8); Monocytes % (Auto) 6.1 % (0.0-7.3); Platelet Count 226 K/mm3 (140-440); Red Blood Count 4.54 M/mm3 (3.65-5.03); Red Cell Distribution Width 13.6 % (13.2-15.2)
[2019-05-01 12:26] LABS: Partial Thromboplastin Time 28.7 Sec. (24.2-36.6)
[2019-05-01 12:33] LABS: Alanine Aminotransferase 14 units/L (7-56); Albumin 4.3 g/dL (3.9-5); BUN/Creatinine Ratio 16; Blood Urea Nitrogen 13 mg/dL (7-17); Hemolysis Index 22
--- NOTE | 2019-05-01 12:33 | XRay Report ---
CHEST 1 VIEW INDICATION: Chest Pain COMPARISON: 10/14/2015 FINDINGS: Support devices: Bipolar pacemaker on the left Heart: Stable. Lungs/Pleura: No acute pulmonary or pleural findings. IMPRESSION: 1. No significant change. Signer Name: Doug Cameron MD Signed: 05/01/2019 12:29 PM Workstation Name: [id number]
[2019-05-01 13:08] LABS: INR 1.09 (0.87-1.13)
[2019-05-01] MEDS ORDERED: ATIVAN IV ONE (14:14)
--- NOTE | 2019-05-01 14:29 | Cat Scan Report ---
CTA CHEST WITH IV CONTRAST INDICATION / CLINICAL INFORMATION: MAIN: punching pain in top left center of chest, 3days, cp, sob, hx of dvt. TECHNIQUE: Axial CT images were obtained through the chest after injection of IV contrast. 3 plane MIP and/or 3D reconstructions were produced. All CT scans at this location are performed using CT dose reduction f or ALARA by means of automated exposure control. COMPARISON: 12/14/2018 CT of the chest FINDINGS: PULMONARY ARTERIES: No pulmonary emboli. THORACIC AORTA: No significant abnormality. HEART: No significant abnormality. CORONARY ARTERIES: No significant calcification. PLEURA: No pleural effusion. No pneumothorax. LYMPH NODES: No significant adenopathy. LUNGS: No acute air space or interstitial disease. ADDITIONAL FINDINGS: None. UPPER ABDOMEN: No acute findings. SKELETAL STRUCTURES: No significant osseous abnormality. IMPRESSION: 1. No CT evidence for pulmonary embolism. 2. No acute findings. Signer Name: Randal Sanabria MD Signed: 05/01/2019 2:24 PM Workstation Name: [id number]
[2019-05-01] MEDS ORDERED: SOLU-Medrol IV ONE (15:06)
[2019-05-01] MEDS ORDERED: NORCO 5/325 PO ONE (15:37)
[2019-05-01] MEDS ORDERED: ZITHROMAX PO ONE (16:01)
[2019-05-01 17:33] VITALS: BP 134/78
== END 2019-05-01 17:45 | disposition home or self-care (01) ==
LOC: ED 11:29
DX: R07.89 Other chest pain (principal); J40 Bronchitis, not specified as acute or chronic; I11.0 Hypertensive heart disease with heart failure; I50.9 Heart failure, unspecified; F32.9 Major depressive disorder, single episode, unspecified; J45.909 Unspecified asthma, uncomplicated; F17.200 Nicotine dependence, unspecified, uncomplicated; Z88.6 Allergy status to analgesic agent; Z88.0 Allergy status to penicillin; Z95.818 Presence of other cardiac implants and grafts
CPT/HCPCS: 36415; 71045; 71275; 80053; 83690; 83735; 84484; 85025; 85379; 85610; 85730; 93005; 93010; 96374; 96375; 99285; J1885; J2060; J2930; Q9967